=== PATIENT | female | born 1940 | race Caucasian/White ===

== ENCOUNTER → 2018-10-01 | Outpatient (CLI) | payer OTHER | LOC: LAB.O 08:33 | PROVIDERS: ATTEND Family Medicine | DX: I10 Essential (primary) hypertension (principal); E78.5 Hyperlipidemia, unspecified ==

== ENCOUNTER → 2018-11-29 | Outpatient (CLI) | payer OTHER | LOC: LAB.O 12:37 | PROVIDERS: ATTEND Family Medicine | DX: M47.816 Spondylosis without myelopathy or radiculopathy, lumbar region (principal); M19.90 Unspecified osteoarthritis, unspecified site ==

== ENCOUNTER → 2019-06-12 | Outpatient (CLI) | payer OTHER | LOC: LAB.O 09:16 | PROVIDERS: ATTEND Orthopaedic Surgery | DX: Z01.818 Encounter for other preprocedural examination (principal); Z01.812 Encounter for preprocedural laboratory examination; Z79.01 Long term (current) use of anticoagulants; M19.012 Primary osteoarthritis, left shoulder ==